=== PATIENT | female | born 1990 | race Caucasian/White ===

== ENCOUNTER 2019-02-09 18:58 | Emergency (ER) | payer OTHER ==
--- NOTE | 2019-02-09 19:18 | PDOC ---
Rapid Medical Evaluation Time Seen by Provider: 02/09/19 19:16 Medical Evaluation: 02/09/19 19:16 I have performed a brief in-person evaluation of this patient. The patient presents with a chief complaint of: Upper abd pain x several days, on and off, w/ bloating and frequent BMs but no diarrhea, melena or BRBPR. No n/ v/f/c. Has had similar pain in past but never seeked medical eval Pertinent physical exam findings:well lalo and stable w/ no sig ttp on abd exam I have ordered the following:ua/preg/labs The patient will proceed to the ED for further evaluation. Discharge Disposition - Diagnosis Abdominal pain Qualifiers: Abdominal location: upper abdomen, unspecified Qualified Code(s): R10.10 - Upper abdominal pain, unspecified - Referrals - Patient Instructions - Post Discharge Activity
[2019-02-09 19:20] VITALS: BP 119/68; PULSE 74; TEMP 97.3; BMI 38.9
[2019-02-09 20:00] LABS: PH,URINE 6.5 (5.0-8.0); URINE APPEARANCE CLEAR; URINE BILIRUBIN NEGATIVE (NEGATIVE); URINE COLOR YELLOW; URINE GLUCOSE (UA) NEGATIVE (NEGATIVE); URINE KETONE NEGATIVE (NEGATIVE); URINE LEUK ESTERASE NEGATIVE (NEGATIVE); URINE NITRITE NEGATIVE (NEGATIVE); URINE PROTEIN NEGATIVE (NEGATIVE)
== END 2019-02-09 21:07 | disposition left against medical advice (07) ==
LOC: JER 18:58
DX: R10.10 Upper abdominal pain, unspecified (principal)
CPT/HCPCS: 81003; 99281-25

== ENCOUNTER 2019-02-11 15:55 | Emergency (ER) | payer OTHER ==
[2019-02-11 16:04] VITALS: TEMP 98.4; BMI 38.9
[2019-02-11] MEDS ORDERED: SODIUM CHLORIDE 1,000 ML IV STA (17:57)
--- NOTE | 2019-02-11 18:03 | PDOC ---
History of Present Illness - General Chief Complaint: Pain, Acute Stated Complaint: NAUSEA/DIARRHEA Time Seen by Provider: 02/11/19 17:48 History Source: Patient Exam Limitations: No Limitations - History of Present Illness Travel History: No Initial Comments: 02/11/19 17:59 HISTORY OF PRESENT ILLNESS: 29-year-old woman denies medical history presents emergency department for evaluation of diffuse abdominal cramping and bloating for 1 week with diarrhea today having greater than 5 episodes of nonbloody loose green stools. Patient denies any fevers or chills. Patient reports she was in [place] until 3 days ago and symptoms developed while she was there. She states she did not drink any of the water have any drinks with ice. Patient states she has not had any sick contacts and nobody from her family in [place] has been experiencing any symptoms. She denies nausea, vomiting, rectal bleeding, vaginal discharge, dysuria, hematuria. Patient reports she has irregular menses and her last period was approximately 70 days ago. Does not know the exact date but has an lalo on her phone to tell her days late. No recent travel or sick contacts. PAST MEDICAL HISTORY: Denies past medical history SURGICAL HISTORY: Denies ALLERGIES: No known drug allergies REVIEW OF SYSTEMS General/Constitutional: Denies fever or chills. Denies weakness, weight change. HEENT: Denies change in vision. Denies ear pain or discharge. Denies sore throat. Cardiovascular: Denies chest pain or shortness of breath. Respiratory: Denies cough, wheezing, or hemoptysis. Gastrointestinal: see HPI Genitourinary: Denies dysuria, frequency, or change in urination. Musculoskeletal: Denies joint or muscle swelling or pain. Denies neck or back pain. Skin and breasts: Denies rash or easy bruising. Neurologic: Denies headache, vertigo, loss of consciousness, or loss of sensation. Psychiatric: Denies depression or anxiety. Endocrine: Denies increased thirst. Denies abnormal weight change. Hematologic/Lymphatic: Denies anemia, easy bleeding, or history of blood clots. Allergic/Immunologic: Denies hives or skin allergy. Denies latex allergy. PHYSICAL EXAM General Appearance: Well-appearing, appropriately dressed. No apparent distress , no intoxication. Respiratory/Chest: Lungs CTAB. No shortness of breath, chest tenderness, respiratory distress, accessory muscle use. No crackles, rales, rhonchi, stridor , wheezing, dullness Cardiovascular: RRR. S1, S2. No JVD, murmur, bradycardia, tachycardia. Vascular Pulses: Dorsalis-Pedis (R): 2+, Dorsalis-Pedis (L): 2+ Gastrointestinal/Abdominal: Normal bowel sounds. Abdomen soft, non-distended. No tenderness or rebound tenderness. No organomegaly, pulsatile mass, guarding, hernia, hepatomegaly, splenomegaly. Negative psoas and obturator signs. No McBurney's tenderness. Neurologic: hood fitter II-XII intact. Fully oriented, alert. Appropriate mood/affect. Motor strength 5/5. No appreciable EOM palsy, facial droop or sensory deficit. 02/11/19 18:03 Past History - Past Medical History Allergies/Adverse Reactions: Allergies Allergy/AdvReac Type Severity Reaction Status Date / Time No Known Allergies Allergy Verified 02/11/19 16:04 Home Medications: Ambulatory Orders Ciprofloxacin [Cipro (Restricted To Id)] 500 mg PO Q12H #6 tablet 02/11/19 COPD: No - Suicide/Smoking/Psychosocial Hx Smoking History: Never smoked Have you smoked in the past 12 months: No Hx Alcohol Use: Yes Drug/Substance Use Hx: No *Physical Exam - Vital Signs Last Vital Signs Temp Pulse Resp BP Pulse Ox 98.4 F 79 16 121/80 99 02/11/19 16:01 02/11/19 16:01 02/11/19 16:01 02/11/19 16:01 02/11/19 16:01 ED Treatment Course - LABORATORY CBC & Chemistry Diagram: 02/11/19 18:25 02/11/19 18:25 Medical Decision Making - Medical Decision Making 02/11/19 18:01 A/P: 29-year-old woman with abdominal pain, bloating for 7 days now with diarrhea today Differential diagnosis includes but is not limited to-gastroenteritis, colitis, appendicitis, diverticulitis Labs including lipase Urine including culture and testing Stool for O&P, C. difficile and culture Normal saline 1 L IV bolus Reassess 02/11/19 20:04 Reevaluation reveals benign abdominal exam. Patient is tolerating by mouth's. CBC notable for the BBC of 12.8 no shift present. Chemistries are unremarkable Urinalysis is not suggestive of infection. Urine is negative Given symptoms have been present for approximately one week I will treat with Cipro 500 mg twice a day for the next 3 days for traveler's diarrhea. I discussed the physical exam findings, ancillary test results and final diagnoses with the patient. I answered all of the patient's questions. The patient was satisfied with the care received and felt comfortable with the discharge plan and treatment plan. The patient will call their primary care physician within 24 hours to arrange follow-up and will return to the Emergency Department with any new, persistent or worsening symptoms. *DC/Admit/Observation/Transfer Diagnosis at time of Disposition: Diarrhea Qualifiers: Diarrhea type: presumed infectious Qualified Code(s): R19.7 - Diarrhea, unspecified - Discharge Dispostion Disposition: HOME Condition at time of disposition: Fair Decision to Admit order: No - Prescriptions Prescriptions: Ciprofloxacin [Cipro (Restricted To Id)] 500 mg PO Q12H #6 tablet - Referrals - Patient Instructions Additional Instructions: Rest, drink lots of fluids: Teas, water, soups Beverley tong, carbonated beverages for the bubbles Avoid contact with others until fevers and symptoms resolved Lots of handwashing and good hygiene Cipro 500 mg twice a dayfor the next 3 days. Tylenol or Motrin for pain Followup with private physician in one to 2 days as needed Return to emergency department for worsened symptoms, fevers, dehydration - Post Discharge Activity Forms/Work/School Notes: Back to Work
[2019-02-11 18:30] LABS: BASO % 0.6 % (0-2.0); EOS % 0.5 % (0-4.5); HEMATOCRIT 42.9 % (32.4-45.2); HEMOGLOBIN 14.2 GM/dL (10.7-15.3); LYMPH % 11.4 % (8-40); MCH 29.1 pg (25.7-33.7); MCHC 33.2 g/dl (32.0-36.0); MEAN CELL VOLUME 87.6 fl (80-96); MEAN PLT VOLUME 9.3 fl (7.5-11.1); MONO % 8.8 % (3.8-10.2); NEUT % 78.7 % (42.8-82.8); PLATELET COUNT 227 K/MM3 (134-434); RBC 4.89 M/mm3 (3.60-5.2); RDW 13.6 % (11.6-15.6); WHITE BLOOD COUNT 12.8 K/mm3 (4.0-10.0)
[2019-02-11 18:55] LABS: ALBUMIN 3.9 g/dl (3.4-5.0); BILIRUBIN,TOTAL 0.4 mg/dL (0.2-1); BLOOD UREA NITROGEN 13.1 mg/dL (7-18); CALCIUM 9.2 mg/dL (8.5-10.1); CREATININE 0.8 mg/dL (0.55-1.3); TOT PROT 8.5 g/dl (6.4-8.2)
[2019-02-11 19:15] LABS: URINE APPEARANCE CLEAR; URINE BILIRUBIN NEGATIVE (NEGATIVE); URINE COLOR YELLOW; URINE GLUCOSE (UA) NEGATIVE (NEGATIVE); URINE KETONE NEGATIVE (NEGATIVE); URINE LEUK ESTERASE NEGATIVE (NEGATIVE); URINE NITRITE NEGATIVE (NEGATIVE); URINE PROTEIN NEGATIVE (NEGATIVE); URINE UROBILINOGEN 0.2 mg/dL (0.2-1.0)
[2019-02-12 05:59] VITALS: BP 117/83; PULSE 76
== END 2019-02-11 21:33 | disposition home or self-care (01) ==
LOC: JER 15:55
PROC: 3E0337Z Introduction of Electrolytic and Water Balance Substance into Peripheral Vein, Percutaneous Approach (ICD-10-PCS; principal; 2019-02-11)
DX: R10.9 Unspecified abdominal pain (principal); R19.7 Diarrhea, unspecified
CPT/HCPCS: 36415; 80053; 81003; 83690; 84703; 85025; 87045; 87046; 87177; 87209; 87324; 87449; 99283-25; J7030

== ENCOUNTER 2020-02-20 18:40 | Inpatient (IN) | payer BC, OTHER ==
[2020-02-20] MEDS ORDERED: DEXTROSE 5%-LACTATED RINGERS 1,000 ML IV SCH (19:30)
[2020-02-20] MEDS ORDERED: DINOPROSTONE 10 MG VAGINAL SUPPOSITORY VG ONE (19:30)
--- NOTE | 2020-02-20 19:35 | HP ---
Past Medical History - Primary Care Physician PCP:: Tera Teran - Admission Chief Complaint: 30yo P0 with at EGA 41w2d admitted for labor indx. History of Present Illness: complicated by: Post term gestation Morbid obesity Unfavorable cervical exam History Source: Patient Limitations to Obtaining History: No Limitations - Past Medical History PRINCIPAL BIOSTATISTICIAN: No: Alzheimer's, CVA, Dementia, Migraine, Multiple Sclerosis, Peripheral Neuropathy, Parkinson's, Seizure, Syncope, TIA, Vertigo, Other Cardiovascular: No: AFIB, Aneurysm, Aortic Insufficiency, Aortic Stenosis, CAD, CHF, Deep Vein Thrombosis, HTN, Hyperlipdemia, GA, Mitral Insufficiency, Mitral Stenosis, Murmur, Pulmonary Hypertension, Other Pulmonary: No: Asthma, Bronchitis, Cancer, COPD, O2 Dependent, Pneumonia, Previously Intubated, Pulmonary Embolus, Pulmonary Fibrosis, Sleep Apnea, Other Hepatobiliary: Yes: Other (Gallbladder Adenomyomatosis on US) Renal/: No: Renal Failure, Renal Inusuff, BPH, Cancer, Hematuria, Hemodialysis, Neurogenic Bladder, Renal Calculi, UTI, Other Reproductive: No: Ectopic , Endometriosis, Fibroids, PID, Polycystic Ovary Syndrome, Postmenopausal, Other ...: 1 ...Para: 0 ... Weeks Gestation by Dates: 41.2 Heme/Onc: No: Anemia, B12 Deficiency, Bleeding Disorder, Cancer, Current Chemotherapy, Current Radiation Therapy, Hemochromatosis, Hypercoaguable State, Myeloproliferative Synd, Sickle Cell Disease, Sickle Cell Trait, Thrombocytopenia, Other Infectious Disease: No: AIDS, C-Diff, Herpes Zoster, HIV, MRSA, STD's, Tuberculosis, VREF, Other Psych: No: Addictions, Anxiety, Bipolar, Depression, Panic, Psychosis, Schizophrenia, Other Musculoskeletal: No: Bursitis, Chronic low back pain, Hemiparesis, Hemiplegia, Osteoarthritis, Paraplegia, Other Rheumatology: No: Fibromyalgia, Gout, Lupus, Rheumatoid Arthritis, Sarcoidosis, Vasculitis, Other ENT: No: Allergic Rhinitis, Sinusitis, Other Endocrine: No: Foard's Disease, Aden's Disease, Diabetes Insipidus, Diabetes Mellitus, Hyperparathyroidism, Hyperthyroidism, Hypothyroidism, Osteopenia, SIADH, Other Dermatology: No: Basal Cell, Cellulitis, Eczema, Melanoma, Psoriasis, Squamous Cell, Other - Past Surgical History Past Surgical History: Yes: None Hx Myomectomy: No Hx Transabdominal Cerclage: No - Smoking History Smoking history: Never smoked Have you smoked in the past 12 months: No - Alcohol/Substance Use Hx Alcohol Use: Yes History of Substance Use: reports: None - Social History Usual Living Arrangement: Yes: With Spouse Do you think of yourself as: Straight/Heterosexual ADL: Independent History of Recent Travel: No Home Medications - Allergies Allergies/Adverse Reactions: Allergies Allergy/AdvReac Type Severity Reaction Status Date / Time No Known Allergies Allergy Verified 02/20/20 19:16 Family Medical History Family History: Unremarkable Review of Systems - Review of Systems Constitutional: reports: No Symptoms Eyes: reports: No Symptoms HENT: reports: No Symptoms Neck: reports: No Symptoms Cardiovascular: reports: No Symptoms Respiratory: reports: No Symptoms Gastrointestinal: reports: No Symptoms Genitourinary: reports: No Symptoms Breasts: reports: No Symptoms Reported Musculoskeletal: reports: No Symptoms Integumentary: reports: No Symptoms Neurological: reports: No Symptoms Endocrine: reports: No Symptoms Hematology/Lymphatic: reports: No Symptoms Psychiatric: reports: No Symptoms Pain Intensity: 0 Physical Exam - Maternity Constitutional: Yes: No Distress, Calm, Obese Eyes: Yes: WNL, Conjunctiva Clear, EOM Intact HENT: Yes: WNL, Atraumatic, Normocephalic Neck: Yes: WNL, Supple, Trachea Midline Cardiovascular: Yes: WNL, Regular Rate and Rhythm Lungs: Clear to auscultation, Normal air movement - Abdominal Exam/OB Fundal Height: 41 Number of Fetuses: Single Presentation: Vertex Contractions: No Monitor Mode: External Heart Rate (range): 140 Heart Rate Location: Midline Category: I Accelerations: Non-Uniform Decelerations: None - Vaginal Exam/OB Vaginal Bleeding: No Speculum Exam: No Dilatation (cm): 0.5 Effacement (%): 0 Amniotic Membrane Status: Intact Presentation: Vertex/Position Station: -4 (EFW ~3200 gm by Matthew maneuvers. Gynecoid pelvimetry) - Physical Exam Musculoskeletal: Yes: WNL Extremities: Yes: WNL Edema: Yes Edema: LLE: Trace, RLE: Trace Integumentary: Yes: WNL Deep Tendon Reflex Grade: Normal +2 ...Motor Strength: WNL Psychiatric: Yes: WNL, Alert, Oriented Hemorrhage Risk Assessment - Risk Factors Medium Risk Factors: Yes: Obesity (BMI >40) High Risk Factors: Yes: None Risk Score: 1 Risk Level: Medium Risk Imaging - Results Ultrasound: Report Reviewed Assessment/Plan 30yo P0 with at EGA 41w2d admitted for labor indx. Pt is not in labor. Fetus with Category I tracing. Adequate gynecoid pelvimetry on exam. We had long discussion re: risks, benefits, and alternatives of labor induction. I explained the options of expectant management awaiting spontaneous labor, induction of labor, and elective section. The risks of uterine tachysystole, distress, uterine rupture, need for emergency C/S, hemorrhage, infection, scarring, etc. were discussed. We also discussed the risks of meconium aspiration, shoulder dystocia, and anesthesia options. The pt requested to proceed with induction. We discussed the alternative methods of induction with Cervidil, Cytotec, Folley ballon, and pitocin. The pt prefers Cervidil followed by pitocin, if needed.
[2020-02-20 19:54] VITALS: BMI 40.7
[2020-02-20 20:26] LABS: BASO % 0.6 % (0-2.0); EOS % 0.4 % (0-4.5); HEMATOCRIT 34.6 % (32.4-45.2); HEMOGLOBIN 11.3 GM/dL (10.7-15.3); LYMPH % 18.9 % (8-40); MCH 26.9 pg (25.7-33.7); MCHC 32.8 g/dl (32.0-36.0); MEAN CELL VOLUME 82.1 fl (80-96); MEAN PLT VOLUME 10.7 fl (7.5-11.1); MONO % 9.5 % (3.8-10.2); NEUT % 70.6 % (42.8-82.8); PLATELET COUNT 207 K/MM3 (134-434); RBC 4.22 M/mm3 (3.60-5.2); RDW 14.5 % (11.6-15.6); WHITE BLOOD COUNT 10.1 K/mm3 (4.0-10.0)
[2020-02-20 20:32] LABS: INR 0.88 (0.83-1.09); PROTHROMBIN TIME (PATIENT) 10.4 SEC (9.7-13.0)
[2020-02-20 20:35] LABS: ACTIVATED PTT 30.4 SECONDS (25.2-36.5)
[2020-02-20 20:42] LABS: BLOOD UREA NITROGEN 12.9 mg/dL (7-18); CALCIUM 8.4 mg/dL (8.5-10.1); CREATININE 0.7 mg/dL (0.55-1.3); POTASSIUM 4.2 mmol/L (3.5-5.1)
[2020-02-21] MEDS ORDERED: PROMETHAZINE HCL 25 MG/1 ML VIAL ONE (07:12)
[2020-02-21] MEDS ORDERED: BUTORPHANOL TARTRATE 2 MG/ML VIAL ONE (07:12)
[2020-02-21] MEDS ORDERED: BUTORPHANOL TARTRATE 2 MG/ML VIAL IVPB ONE (07:30)
[2020-02-21] MEDS ORDERED: PROMETHAZINE HCL 25 MG/1 ML VIAL IVPB ONE (07:30)
[2020-02-21] MEDS ORDERED: AMPICILLIN SODIUM 2 GM VIAL ONE (07:34)
[2020-02-21] MEDS ORDERED: AMPICILLIN - 2 GM in SODIUM CHLORIDE 100 ML IVPB ONE (07:45)
[2020-02-21] MEDS ORDERED: OXYTOCIN 30 UNITS in 0.9% NS 30 UNIT/500 ML INFUS.BAG IVPB ONE (08:47)
--- NOTE | 2020-02-21 08:50 | PN ---
Ante-Partal Exam - Subjective Subjective: Pt was c/o pain with contractions. She had Stadol/Phenergan and is nor comfo rtable. SROM at 7:50am Vital Signs: Vital Signs Temperature 98.5 F 02/21/20 08:00 Pulse Rate 89 02/21/20 08:00 Respiratory Rate 20 02/21/20 08:00 Blood Pressure 134/77 02/21/20 08:00 O2 Sat by Pulse Oximetry (%) Bleeding: No Headache: No Visual changes: No Right upper quadrant pain: No Pain (scale 1-10): 6 - Contractions Contractions: Yes Regularity: Irregular Intensity: Mild/Mod Monitor Mode: External - Exam during Labor Heart Rate: 140 Variability: Moderate Heart Rate Location: Midline Category: I Monitor Accelerations: Absent Monitor Decelerations: None Presentation: Vertex - Intrapartum Hemorrhage Risk Medium Risk Factors: None High Risk Factors: None Risk Score: 0 Risk Level: Low Risk - Assessment/Plan Assessment/Plan: 30yo P0 with at EGA 41w3d undergoing for labor indx. Fetus with Category I tracing. Labor in latent stage. Plan to augment contractions with pitocin. Abx started for GBS prophylaxis.
[2020-02-21] MEDS ORDERED: OXYTOCIN 30 UNITS in 0.9% NS 30 UNIT/500 ML INFUS.BAG IVPB SCH (09:00)
[2020-02-21] MEDS: ELECTROLYTE-148 SOLN 1,000 ML IV SCH ×2 (10:40→16:00)
[2020-02-21] MEDS ORDERED: PCA PUMP NR ONE ×2 (10:43→19:55)
[2020-02-21] MEDS ORDERED: AMPICILLIN SODIUM 1 GM VIAL ONE ×4 (10:44→22:28)
[2020-02-21] MEDS ORDERED: FENTANYL/BUPIVACAINE/NS/PF - PCEA - 50 ML DISP.SYRIN EP ONE ×4 (10:44→23:49)
[2020-02-21] MEDS ORDERED: BUPIVACAINE HCL/PF 0.25% (2.5MG/ML) 10 ML VIAL ONE (10:48)
[2020-02-21] MEDS: AMPICILLIN - 1 GM in SODIUM CHLORIDE 100 ML IVPB SCH ×4 (11:00→22:46)
[2020-02-21] MEDS ORDERED: NALOXONE HCL 0.4 MG/ML VIAL IVPUSH PRN (11:39)
[2020-02-21] MEDS ORDERED: FENTANYL/BUPIVACAINE/NS/PF - PCEA - 50 ML DISP.SYRIN EP SCH (11:45)
--- NOTE | 2020-02-21 18:52 | PN ---
Ante-Partal Exam - Subjective Subjective: No complaints Vital Signs: Vital Signs Temperature 98.6 F 02/21/20 18:00 Pulse Rate 91 H 02/21/20 18:30 Respiratory Rate 17 02/21/20 18:30 Blood Pressure 127/75 02/21/20 18:30 O2 Sat by Pulse Oximetry (%) 100 02/21/20 18:30 Bleeding: No Headache: No Visual changes: No Right upper quadrant pain: No Pain (scale 1-10): 0 - Contractions Contractions: Yes Regularity: Irregular Intensity: Unaware Monitor Mode: External - Exam during Labor Heart Rate: 140 Variability: Moderate Heart Rate Location: Midline Category: I Monitor Accelerations: Present Monitor Decelerations: None Exam: Vaginal Dilatation (cm): 5 Effacement (%): 90 Amniotic Membrane Status: Leaking Amniotic Fluid: Clear Presentation: Vertex Station: -3 - Intrapartum Hemorrhage Risk Medium Risk Factors: None High Risk Factors: None Risk Score: 0 Risk Level: Low Risk - Assessment/Plan Assessment/Plan: Fetus with category I tracing and requires no intervention. Labor in active phase. Irregular contractions Protracted labor. Plan to augment with pitocin again. Plan of care d/w pt and .
--- NOTE | 2020-02-21 21:05 | PN ---
Ante-Partal Exam - Subjective Subjective: No complaints. Vital Signs: Vital Signs Temperature 98.1 F 02/21/20 20:00 Pulse Rate 86 02/21/20 20:00 Respiratory Rate 18 02/21/20 20:00 Blood Pressure 127/81 02/21/20 20:00 O2 Sat by Pulse Oximetry (%) 100 02/21/20 20:00 Bleeding: No Headache: No Visual changes: No Right upper quadrant pain: No Pain (scale 1-10): 0 - Contractions Contractions: Yes Regularity: Irregular Intensity: Moderate Monitor Mode: External - Exam during Labor Heart Rate: 140 Variability: Moderate Heart Rate Location: Midline Category: I Monitor Accelerations: Present Monitor Decelerations: None Exam: Vaginal Dilatation (cm): 5 Effacement (%): 80 Amniotic Membrane Status: Leaking Amniotic Fluid: Clear Presentation: Vertex Station: -3 - Intrapartum Hemorrhage Risk Medium Risk Factors: None High Risk Factors: None Risk Score: 0 Risk Level: Low Risk - Assessment/Plan Assessment/Plan: Fetus with Category I tracing Labor in active stage, appears with arrest of labor. Plan to continue pitocin.
--- NOTE | 2020-02-21 23:15 | PN ---
Ante-Partal Exam - Subjective Vital Signs: Vital Signs Temperature 98.3 F 02/21/20 22:00 Pulse Rate 86 02/21/20 22:15 Respiratory Rate 18 02/21/20 22:15 Blood Pressure 132/85 02/21/20 22:15 O2 Sat by Pulse Oximetry (%) 100 02/21/20 22:15 Bleeding: No Headache: No Visual changes: No Right upper quadrant pain: No Pain (scale 1-10): 0 - Contractions Contractions: Yes Regularity: Regular (q3-4 min) Intensity: Mod/Strong Monitor Mode: External - Exam during Labor Heart Rate: 140 Variability: Moderate Heart Rate Location: Midline Category: I Monitor Accelerations: Present Monitor Decelerations: None Exam: Vaginal Dilatation (cm): 5 Effacement (%): 80 Amniotic Membrane Status: Leaking Amniotic Fluid: Clear Presentation: Vertex Station: -3 - Intrapartum Hemorrhage Risk Medium Risk Factors: None High Risk Factors: None Risk Score: 0 Risk Level: Low Risk - Assessment/Plan Assessment/Plan: Pt with arrest of dilation. Fetus with Category I tracing. I advised a C/S delivery. Risks, benefits of continued labor indx vs C/S explained. We discussed the risks of obesity, infection, injury to fetus and/or mother, uterine atony, shoulder dystocia, hemorrhage, etc. The pt wants to consider her options and decide later. She is discussing this with her .
[2020-02-22] MEDS ORDERED: LIDO 2%/EPI 1:200000 PRESRVFRE (20 ML SDVIAL) ONE (00:09)
[2020-02-22] MEDS ORDERED: OXYTOCIN 20 UNITS in 0.9% NS 20 UNIT/1,000 ML INFUS.BAG IV ONE ×2 (00:11→03:29)
[2020-02-22] MEDS ORDERED: morphine SULFATE/PF 0.5 MG/ML (2cc Syringe - QUVA) ONE ×2 (00:19)
[2020-02-22] MEDS ORDERED: CITRIC ACID/SODIUM CITRATE 30 ML UNIT-DOSE CUP PO ONE (00:45)
[2020-02-22] MEDS ORDERED: METHYLERGONOVINE MALEATE 0.2 MG/1 ML AMP IM PRN (02:01)
[2020-02-22] MEDS ORDERED: BENZOCAINE 20% 57 GM BOTTLE TP PRN (02:01)
[2020-02-22] MEDS ORDERED: WITCH HAZEL 50% (TUCKS) 40 PAD/JAR PAD TP PRN (02:01)
[2020-02-22] MEDS ORDERED: BENZOCAINE 28 GM HEMORRHOIDAL OINTMENT TP PRN (02:01)
[2020-02-22] MEDS ORDERED: oxyCODONE HCL 5 MG TABLET PO PRN (02:01)
[2020-02-22] MEDS ORDERED: IBUPROFEN 800 MG/8 ML IJ IVPB PRN (02:01)
[2020-02-22] MEDS ORDERED: SENNOSIDES/DOCUSATE COMBO (SENNA PLUS) TABLET (UD) PO PRN (02:01)
[2020-02-22] MEDS ORDERED: SIMETHICONE 80 MG TAB.CHEW (FP) PO PRN (02:01)
--- NOTE | 2020-02-22 02:07 | OP ---
Operative Note - Note: Operative Date: 02/22/20 Pre-Operative Diagnosis: Post term at 41w4d. Arrest of dilation. Morbid obesity Operation: Primary LT C/S Findings: Live baby boy in vts presentation. No meconium in amniotic fluid. 9-9. Baby's weight 6lb 4 oz. Normal uterus/tubes/ovaries Post-Operative Diagnosis: Same as Pre-op Surgeon: Tera Teran Fern Picker: Maryellen Rivas Anesthesiologist/FLANGING MACHINE OPERATOR: Robinson Marcelo Anesthesia: Epidural Specimens Removed: Placenta Estimated Blood Loss (mls): 800 Drains & Tubes with Location: Watson Cath Drains, Volume Out (mls): 150 Blood Volume Replaced (mls): 0 Fluid Volume Replaced (mls): 1,000 Operative Report Dictated: Yes
[2020-02-22] MEDS ORDERED: ceFAZolin 2 GRAM PREMIX BAG IVPB SCH (02:15)
[2020-02-22 03:37] LABS: CORD HCO3 22.8 mmHg (20-29); CORD PCO2 51.5 mmHg (30-78); CORD pH 7.264 (7.14-7.44)
[2020-02-22 03:54] LABS: CORD PCO2 44.5 mmHg (30-78); CORD pH 7.292 (7.14-7.44)
[2020-02-22 03:55] LABS: CORD BASE EXCESS -5.5 mmol/L (0-2)
[2020-02-22] MEDS: OXYTOCIN 20 UNITS in 0.9% NS 20 UNIT/1,000 ML INFUS.BAG IV SCH (04:39)
[2020-02-22] MEDS: PRENATAL VITAMINS W/ FOLIC ACID TABLET (FP) PO SCH (09:29)
[2020-02-22] MEDS: CEFAZOLIN 2 GM/D5W 2 GM/50 ML ML IVPB SCH ×2 (09:29→17:35)
[2020-02-22] MEDS: ENOXAPARIN NA (PORCINE) 40 MG/0.4 ML DISP.SYRIN SQ SCH (09:29)
--- NOTE | 2020-02-22 10:52 | PN ---
Progress Note (short form) - Note Progress Note: Anesthesia postop note 30 y/o F s/p spinal anesthesia/duramorph for section. VSS, aaox3, sensory motor intact distally, pain well controlled. No anesthesia complications.
[2020-02-22] MEDS: IBUPROFEN 600 MG TABLET (FP) PO PRN (18:00)
--- NOTE | 2020-02-22 19:25 | OP ---
DATE OF OPERATION: 02/22/2020 PREOPERATIVE DIAGNOSIS: Post term at 41 weeks and 4 days, arrest of dilation, morbid obesity affecting . POSTOPERATIVE DIAGNOSIS: Post term at 41 weeks and 4 days, arrest of dilation, morbid obesity affecting . PROCEDURE: Primary low transverse section via Pfannenstiel skin incision. SURGEON: Tera Teran MD. PLISSE MACHINE OPERATOR HELPER: Maryellen Rivas MD. ANESTHESIOLOGIST: Robinson Marcelo MD. ANESTHESIA: Epidural. COMPLICATIONS: None. ESTIMATED BLOOD LOSS: 800 mL. INTRAVENOUS FLUIDS: 1000 mL. PATHOLOGY: Placenta. FINDINGS: Live baby boy in vertex presentation, no meconium in amniotic fluids, Apgars 9 and 9. Baby's weight 6 pounds 4 ounces. Normal uterus, fallopian tubes, and ovaries. PROCEDURE: The patient was met preoperatively. Risks, benefits, and alternatives of surgery were discussed. All questions were answered. The consent form was discussed and reviewed. The patient verbalized her understanding and requested to proceed with the surgery. The patient was brought to the OR with the IV running. She was placed on the surgical table in the supine position. The adequate level of epidural anesthesia was established. The patient was then prepped and draped in the usual sterile fashion. A Watson catheter was left to drain to gravity. A timeout procedure was conducted as per standard protocol. The surgeon then proceeded with the operation. A Pfannenstiel skin incision was made with the knife approximately 2 cm above the pubic symphysis. The incision was taken down to the level of fascia. The fascia was incised in the midline. The incision was extended bilaterally using Germain scissors. The fascia was dissected away from the rectus muscles superiorly and inferiorly. The rectus muscles were in the midline. The peritoneum was identified, tented up with 2 Kiki clamps, and entered sharply. The peritoneal incision was extended superiorly and inferiorly using Metzenbaum scissors. The bladder peritoneum was dissected away from the lower uterine segment. The bladder was reflected downwards using a Maggie retractor. The lower uterine segment was incised. The incision was extended bilaterally using bandage scissors. The baby was delivered from vertex presentation without complications. The baby was crying spontaneously. The baby's nose and mouth were suctioned. The umbilical cord was clamped. The baby was handed to the waiting soil scientist. The placenta was then extracted manually. The uterus was cleared of all clots and debris using laparotomy laps. The uterine incision was repaired using 0 Biosyn suture with a running, locking stitch. Good hemostasis was noted. The uterine incision was then imbricated using a 0 Biosyn suture with good hemostasis. The bladder peritoneum was then reapproximated using a 0 Biosyn suture. The operative site was irrigated using copious amount of normal saline. Once the saline was aspirated, good hemostasis again was confirmed. The parietal peritoneum was reapproximated using a 2-0 chromic suture. The rectus muscles were approximated using several interrupted 2-0 chromic sutures. The fascia was closed using a 0 Vicryl suture with a running stitch. The Tawny fascia and adipose subcutaneous tissues were approximated to eliminate space using several interrupted 2-0 chromic sutures. The skin was closed using a 3-0 Vicryl suture in a subcutaneous stitch. The patient tolerated procedure well. Sponge, lap, and needle counts were correct. Patient was transferred to recovery room in stable condition. Te [id number]
[2020-02-23] MEDS: CEFAZOLIN 2 GM/D5W 2 GM/50 ML ML IVPB SCH (01:00)
[2020-02-23] MEDS ORDERED: BISACODYL 10 MG SUPP.RECT RC PRN (02:01)
[2020-02-23 09:05] LABS: BASO % 0.2 % (0-2.0); EOS % 0.6 % (0-4.5); HEMATOCRIT 29.4 % (32.4-45.2); HEMOGLOBIN 9.5 GM/dL (10.7-15.3); LYMPH % 12.7 % (8-40); MCH 26.4 pg (25.7-33.7); MCHC 32.2 g/dl (32.0-36.0); MEAN CELL VOLUME 81.9 fl (80-96); MEAN PLT VOLUME 9.7 fl (7.5-11.1); MONO % 8.3 % (3.8-10.2); NEUT % 78.2 % (42.8-82.8); PLATELET COUNT 156 K/MM3 (134-434); RBC 3.59 M/mm3 (3.60-5.2); RDW 14.6 % (11.6-15.6); WHITE BLOOD COUNT 12.3 K/mm3 (4.0-10.0)
--- NOTE | 2020-02-23 09:20 | PN ---
Post Progress Note - Subjective Subjective: Patient without acute complaints. Reports tolerating oral intake without nausea or vomiting. Ambulating without dizziness. Denies fevers or chills. Pain well controlled with oral pain medication. without difficulty. Passing flatus. Post Day: 2 Type of Delivery: Primary C/S Vital Signs: Vital Signs Temperature 98.0 F 02/23/20 01:22 Pulse Rate 96 H 02/23/20 01:22 Respiratory Rate 20 02/23/20 01:22 Blood Pressure 132/77 02/23/20 01:22 O2 Sat by Pulse Oximetry (%) 97 02/22/20 14:00 Uterus: Yes: Fundus Firm Incision: Yes: Dressing dry and intact, Sutures intact. No: Redness, Oozing Abdomen/GI: Yes: Abdomen soft, Tender, Passing flatus, Tolerating PO. No: Abdo donna Distention Lochia: Yes: Rubra Lochia, amount: Moderate Extremities: Yes: Calves non-tender. No: Edema Activity: Ambulating - Labs Labs: CBC WBC 10.1 K/mm3 (4.0-10.0) H 02/20/20 19:45 RBC 4.22 M/mm3 (3.60-5.2) 02/20/20 19:45 Hgb 11.3 GM/dL (10.7-15.3) 02/20/20 19:45 Hct 34.6 % (32.4-45.2) D 02/20/20 19:45 MCV 82.1 fl (80-96) 02/20/20 19:45 MCH 26.9 pg (25.7-33.7) 02/20/20 19:45 MCHC 32.8 g/dl (32.0-36.0) 02/20/20 19:45 RDW 14.5 % (11.6-15.6) 02/20/20 19:45 Plt Count 207 K/MM3 (134-434) 02/20/20 19:45 MPV 10.7 fl (7.5-11.1) D 02/20/20 19:45 Absolute Neuts (auto) 7.2 K/mm3 (1.5-8.0) 02/20/20 19:45 Neutrophils % 70.6 % (42.8-82.8) 02/20/20 19:45 Lymphocytes % 18.9 % (8-40) D 02/20/20 19:45 Monocytes % 9.5 % (3.8-10.2) 02/20/20 19:45 Eosinophils % 0.4 % (0-4.5) 02/20/20 19:45 Basophils % 0.6 % (0-2.0) 02/20/20 19:45 Nucleated RBC % 0 % (0-0) 02/20/20 19:45 Assessment/Plan 30 yo POD # 2 s/p primary CD, afebrile, vital signs stable, doing well 1. Continue routine postoperative care. 2. Encourage ambulation and incentive spirometer use 3. Continue oral pain medication 4. Anticipate discharge home postoperative day #3 or #4
[2020-02-23] MEDS: PRENATAL VITAMINS W/ FOLIC ACID TABLET (FP) PO SCH (09:50)
[2020-02-23] MEDS: IBUPROFEN 600 MG TABLET (FP) PO PRN (09:50)
[2020-02-23] MEDS: ENOXAPARIN NA (PORCINE) 40 MG/0.4 ML DISP.SYRIN SQ SCH (09:50)
[2020-02-23] MEDS: OXYTOCIN 20 UNITS in 0.9% NS 20 UNIT/1,000 ML INFUS.BAG IV SCH (14:47)
--- NOTE | 2020-02-23 18:48 | DS ---
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..Post : Yes: Uterus firm, Uterus non-tender, Slight lochia rubra Breast(s): Yes: WNL Musculoskeletal: Yes: WNL Extremities: Yes: WNL Edema: Yes Edema: LLE: Trace, RLE: Trace Integumentary: Yes: WNL Wound/Incision: Yes: Clean/Dry, Well Approximated, Sutures Intact, Steri Strips, Open to air Neurological: Yes: WNL, Alert, Oriented ...Motor Strength: WNL Psychiatric: Yes: WNL, Alert, Oriented Labs: CBC, BMP 02/23/20 07:50 02/20/20 19:45 Delivery - Delivery Section: Primary, Low Flap Transverse Type of Anesthesia: Epidural Episiotomy/Laceration: None EBL (cc): 800 Delivery, Single - Stages of Labor Date 1st Stage Initiatied: 02/21/20 Time 1st Stage Initiated: 07:15 Date of Delivery: 02/22/20 Time of Delivery: 01:04 Time Placenta Delivered: 01:05 Placenta: Yes: Expressed, Manual Removal, Normal Configuration - Condition of Infant Edge 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 Present: Yes Name: Matt Brennan Gender: Male Weight: 2.835 kg Position: Right, OP Total Hours ROM (Hrs/Mins): 17 hours 15 minutes - 1 Minute Total Score: 9 5 Minutes Total Score: 9 - Feeding Plan Initial Plan: Exclusive throughout hospitalization Benefits of Exclusively reinforced: Yes Discharge Summary Problems reviewed: Yes Reason For Visit: INDUCTION OF LABOR Post term at 41w4d Arrest of dilation Procedures: Principal: Primary LT C/S Other Procedures: Insertion of cervical dilator, labr induction Hospital Course: Normal course and normal postoperative recovery Goals: Normal course and normal postoperative recovery. Breast feeding encouraged Condition: Good - Instructions Diet, Activity, Other Instructions: Physical activity Resume your normal everyday activity as tolerated no heavy lifting or exercise until seen by your surgeon. You may walk unlimited sylwia of and climb stairs. You may resume driving the car when you feel safe and comfortable behind the wheel. No sexual activity as instructed. Wound care If you have a bandage, leave it on, and keep dry for 48-72 hours. After that time discard the outer bandage. If they are tapes on the skin under the out of bandage leave them in place. They will peel off in the next 7 to 10 days. Do Not Peel them off. You may shower the day after surgery. If there are tapes present on the skin, you may shower over them. Diet There are no dietary restrictions. Eat healthy, high-fiber foods. Drink 6 to 8 glasses of liquid each day. This will assist in keeping your bowels are regular. Pain management You may take Tylenol or acetaminophen or Ibuprofen (for example, Motrin, Advil etc.) from my pain prescription medication is ordered should be taken as prescribed for moderate to severe pain. Call MD for any of the following: Severe pain not relieved by medication Fever of 101 or higher Excessive bleeding or drainage on dressing Inability to urinate Referrals: Tera Teran MD [Staff Physician] - 1 Week Disposition: HOME - Home Medications Prescription Drug Monitoring Program (I-STOP) results: I-STOP not reviewed
[2020-02-23 21:09] VITALS: PULSE 100
[2020-02-24] MEDS: OXYTOCIN 20 UNITS in 0.9% NS 20 UNIT/1,000 ML INFUS.BAG IV SCH (08:56)
[2020-02-24] MEDS: IBUPROFEN 600 MG TABLET (FP) PO PRN (08:58)
[2020-02-24] MEDS: ENOXAPARIN NA (PORCINE) 40 MG/0.4 ML DISP.SYRIN SQ SCH (09:00)
[2020-02-24] MEDS: PRENATAL VITAMINS W/ FOLIC ACID TABLET (FP) PO SCH (09:00)
[2020-02-24 14:10] VITALS: BP 119/78; TEMP 98.3
--- NOTE | 2020-02-27 17:04 | PATH ---
Surgical Pathology Report Patient Name: HANNAH VOSS Med. Rec. 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 Specimen(s) Received PLACENTA Clinical History , status post cervidil and Pitocin, morbid obesity, 41.3 weeks-post dates Final Diagnosis PLACENTA, SECTION: 396 G THIRD TRIMESTER PLACENTA, TRIVASCULAR UMBILICAL CORD, AND PLACENTAL MEMBRANES WITH MECONIUM-LADEN MACROPHAGES Electronically Signed Hollie Love M.D. Gross Description The specimen is received fresh labeled placenta and is a 396 gram, 20.0 x 15.0 x 1.8 cm. placenta with attached membranes and umbilical cord. The attached membranes are max green, meconium stained, translucent with focal opacities and insert marginally. The umbilical cord measures 13 cm. in length and averages 1 cm. in diameter. The cord inserts eccentrically, 3.5 cm. to the nearest margin. No true knots or strictures are identified. Cut surface of the umbilical cord reveals 3 vessels. The surface is hannah green, meconium stained with minimal fibrin deposition and appropriate caliber vessels. The maternal surface is red-brown with focal defects. Sectioning reveals red-brown, spongy parenchyma. No lesions are identified. Trap Puller sections are submitted in three cassettes as follows: 1- membrane rolls and umbilical cord; 2-3- full thickness sections of placenta. 02/24/2020 [facility]/2020
== END 2020-02-24 13:05 | disposition home or self-care (01) | DRG 788 ==
LOC: JLDR 18:40 → J3W 02-22 03:45
PROVIDERS: ADMIT Obstetrics & Gynecology; ATTEND Obstetrics & Gynecology
PROC: 3E0P7VZ Introduction of Hormone into Female Reproductive, Via Natural or Artificial Opening (ICD-10-PCS; principal; 2020-02-20)
PROC: 10D00Z1 Extraction of Products of Conception, Low, Open Approach (ICD-10-PCS; 2020-02-22)
DX: O48.0 Post-term pregnancy (principal); Z3A.41 41 weeks gestation of pregnancy; O62.1 Secondary uterine inertia; O99.214 Obesity complicating childbirth; E66.01 Morbid (severe) obesity due to excess calories; Z37.0 Single live birth
CPT/HCPCS: 36415; 36600; 80048; 82803; 85025; 85610; 85730; 86780; 86850; 86900; 86901; 87340; 88307-TC

== ENCOUNTER 2024-05-15 02:24 | Day surgery (SDC) | payer BC, OTHER ==
[2024-05-15] MEDS ORDERED: ACETAMINOPHEN INJECTION 100 ML ONE (02:53)
[2024-05-15] MEDS ORDERED: MAG HYDROX/AL HYDROX/SIMETH 30 ML UNIT-DOSE CUP ONE (02:53)
[2024-05-15] MEDS ORDERED: FAMOTIDINE 20 MG/50 ML IVPB 20 MG/50 ML MG IVPB ONE (02:53)
[2024-05-15] MEDS ORDERED: ONDANSETRON 4 MG/2 ML VIAL ONE (02:53)
[2024-05-15] MEDS: ONDANSETRON 4 MG/2 ML VIAL IVPUSH ONE (03:24)
[2024-05-15] MEDS: MAG HYDROX/AL HYDROX/SIMETH 30 ML UNIT-DOSE CUP PO ONE (03:24)
[2024-05-15] MEDS: ACETAMINOPHEN 1000 MG/100 ML BAG IVPB ONE (03:24)
[2024-05-15] MEDS: FAMOTIDINE 20 MG/50 ML IVPB 20 MG/50 ML MG IVPB ONE (03:34)
[2024-05-15 03:44] LABS: EOS % 2.4 % (0-4.5); HEMATOCRIT 39.4 % (32.4-45.2); HEMOGLOBIN 13.4 GM/dL (10.7-15.3); LYMPH % 29.1 % (8-40); MCH 29.5 pg (25.7-33.7); MCHC 34.1 g/dl (32.0-36.0); MEAN CELL VOLUME 86.5 fl (80-96); MEAN PLT VOLUME 8.8 fl (7.5-11.1); MONO % 8.3 % (3.8-10.2); NEUT % 59.2 % (42.8-82.8); PLATELET COUNT 241 10^3/uL (134-434); RBC 4.55 M/mm3 (3.60-5.2); RDW 13.3 % (11.6-15.6); WHITE BLOOD COUNT 9.8 K/mm3 (4.0-10.0)
[2024-05-15 03:51] LABS: ALBUMIN 3.5 g/dl (3.4-5.0)
[2024-05-15 03:55] LABS: CALCIUM 9.1 mg/dL (8.5-10.1); CREATININE 0.8 mg/dL (0.55-1.3)
[2024-05-15 03:56] LABS: BILIRUBIN,TOTAL 0.3 mg/dL (0.2-1); TOT PROT 7.8 g/dl (6.4-8.2)
[2024-05-15 04:52] LABS: EPI CELLS 24 /uL (0-25.1); HCG,QUALITATIVE URINE Negative; HYALINE CASTS 0 /uL (0-3.1); PH,URINE 6.5 (5.0-8.0); URINE APPEARANCE CLEAR; URINE BACTERIA 3173 /uL (0-1359); URINE BILIRUBIN NEGATIVE (NEGATIVE); URINE COLOR YELLOW; URINE GLUCOSE (UA) NEGATIVE (NEGATIVE); URINE KETONE NEGATIVE (NEGATIVE); URINE LEUK ESTERASE TRACE (NEGATIVE); URINE NITRITE NEGATIVE (NEGATIVE); URINE PROTEIN NEGATIVE (NEGATIVE); URINE WBC 27 /uL (0-25.8)
[2024-05-15 07:23] LABS: URINE RBC 35.5 /uL (0-23.9)
[2024-05-15] MEDS ORDERED: PIPERACILLIN/TAZOB 4.5 GM 4.5 GM/100 ML BAG IVPB ONE (09:32)
[2024-05-15] MEDS ORDERED: ACETAMINOPHEN 1000 MG/100 ML BAG IVPB PRN (09:42)
[2024-05-15] MEDS ORDERED: ONDANSETRON 4 MG/2 ML VIAL IVPUSH PRN (09:43)
[2024-05-15] MEDS: PIPERACILLIN/TAZOB 4.5 GM 4.5 GM in DEXTROSE 5%-WATER 100 ML IVPB ONE (09:48)
[2024-05-15] MEDS: DEXTROSE 5%-LACTATED RINGERS 1,000 ML IV SCH (10:56)
[2024-05-15 12:32] VITALS: BMI 34.3
[2024-05-16] MEDS: LACTATED RINGERS SOLUTION 1,000 ML/1,000 ML INFUS.BAG IV SCH (01:50)
[2024-05-16] MEDS ORDERED: BUPIVACAINE HCL/PF 0.25% (2.5MG/ML) 10 ML VIAL ONE (09:14)
[2024-05-16] MEDS ORDERED: PROPOFOL 20 ML ONE (09:42)
[2024-05-16] MEDS ORDERED: ROCURONIUM BROMIDE 50 MG/5 ML SYRINGE ONE (09:42)
[2024-05-16] MEDS ORDERED: MIDAZOLAM HCL 2 MG/2 ML SINGLE DOSE VIAL ONE (09:42)
[2024-05-16] MEDS: ceFAZolin 2 GRAM PREMIX BAG IVPB ONE (10:05)
[2024-05-16] MEDS: BUPIVACAINE HCL/PF 0.25% (2.5MG/ML) 10 ML VIAL IJ ONE (10:12)
[2024-05-16] MEDS ORDERED: NEOSTIGMINE METHYLSULFATE 0.5 MG/1 ML - 10 ML MDV ONE (10:34)
[2024-05-16 10:35] LABS: BASO % 0.6 % (0-2.0); HEMOGLOBIN 12.6 GM/dL (10.7-15.3); LYMPH % 35.4 % (8-40); MCH 29.5 pg (25.7-33.7); MEAN CELL VOLUME 86.7 fl (80-96); MEAN PLT VOLUME 8.8 fl (7.5-11.1); MONO % 7.6 % (3.8-10.2); NEUT % 53.4 % (42.8-82.8); PLATELET COUNT 204 10^3/uL (134-434); RBC 4.26 M/mm3 (3.60-5.2); RDW 13.6 % (11.6-15.6); WHITE BLOOD COUNT 5.9 K/mm3 (4.0-10.0)
[2024-05-16] MEDS ORDERED: oxyCODONE HCL 5 MG TABLET PO PRN ×2 (11:06→11:09)
[2024-05-16] MEDS: LACTATED RINGERS SOLUTION 1,000 ML IV SCH (11:15)
[2024-05-16] MEDS: ACETAMINOPHEN 325 MG TABLET (FP) PO SCH (12:30)
[2024-05-16] MEDS: ONDANSETRON 4 MG/2 ML VIAL IVPUSH PRN (12:37)
[2024-05-16 13:31] VITALS: BP 117/76; PULSE 80; RESP 18; TEMP 98.6
[2024-05-16] MEDS: DEXTROSE 5%-LACTATED RINGERS 1,000 ML IV SCH (15:23)
[2024-05-17] MEDS ORDERED: ENOXAPARIN NA (PORCINE) 40 MG/0.4 ML DISP.SYRIN SQ SCH (10:00)
== END 2024-05-16 19:10 | disposition home or self-care (01) ==
LOC: JER 02:24 → UNDOADMIN 09:19 → JERBED 09:19 → J8W 11:36 → JASUSAT 11:36 → J6S 05-16 13:27 → J8W 05-16 13:27 → J6S 05-16 16:07 → JASUSAT 05-16 19:10
PROVIDERS: ATTEND Internal Medicine
PROC: 0FT44ZZ Resection of Gallbladder, Percutaneous Endoscopic Approach (ICD-10-PCS; principal; 2024-05-15)
DX: K80.00 Calculus of gallbladder with acute cholecystitis without obstruction (principal); K82.1 Hydrops of gallbladder
CPT/HCPCS: 36415; 74176-TC; 76705-TC; 80053; 81003; 84703; 85025; 94760; 99285-25; J0131